=== PATIENT | female | born 1980 | race Caucasian/White ===

== ENCOUNTER 2017-01-08 15:36 | Emergency (ER) | payer OTHER ==
[~2017-01-08] VITALS: Wt 64.0 kg
[~2017-01-08 15:36] MED LIST: CLIN-73 PO; HYDR-3498 PO; IBUP-1542 PO; PRENAT PO; ZOF8 PO
[2017-01-08] MEDS ORDERED: HYDR-906 PO (16:24)
[2017-01-08] MEDS ORDERED: CYCL-319 PO (16:24)
[2017-01-08] MEDS ORDERED: IBUP-1542 PO (16:24)
[2017-01-08] MEDS ORDERED: IBUPROFEN 600 MG TAB PO ONE (16:30)
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
== END 2017-01-08 16:50 | disposition home or self-care (01) ==
LOC: FTE 15:36
DX: T74.91XA Unspecified adult maltreatment, confirmed, initial encounter (principal); T17.308A Unspecified foreign body in larynx causing other injury, initial encounter; W49.09XA Other specified item causing external constriction, initial encounter; Y92.9 Unspecified place or not applicable
CPT/HCPCS: Z7502; Z7610; 99284

== ENCOUNTER 2017-07-07 18:40 | Emergency (ER) | payer OTHER ==
[~2017-07-07] VITALS: Wt 66.5 kg
[~2017-07-07 18:40] MED LIST changes: +CYCL-319 PO; +HYDR-906 PO
[2017-07-07 18:45] VITALS: Wt 66.5 kg
[2017-07-07] MEDS ORDERED: HYDROCODONE/APAP (5/325) TAB PO ONE (20:30)
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
[2017-07-07 21:05] LABS: URINE BLOOD (Dip) POC Negative (NEGATIVE)
--- NOTE | 2017-07-07 21:25 | RADRPT ---
PROCEDURE: CT Abdomen and Pelvis without contrast CLINICAL INDICATION: Lower abdominal pain TECHNIQUE: Transaxial images were obtained through the abdomen and pelvis on a multi-slice scanner without the intravenous contrast administration. No oral contrast had previously been given. Sagit osiel and coronal re-formations were subsequently reconstructed. One or more of the following dose reduction techniques were used: - Automated exposure control. - Adjustment of the mA and/or kV according to patient size. - Use of iterative reconstruction technique. Radiation dose: CTDIvol = 8.13 mGy; DLP = 412.57 mGy-cm. COMPARISON: No prior studies are available for comparison. FINDINGS: Lung bases: The visualized lung bases appear unremarkable. Liver: The liver is mildly enlarged but no focal lesion is identified. Gallbladder: The gallbladder is somewhat contracted but no radiopaque stone is identified. Bile ducts: The intra and extrahepatic bile ducts are normal in caliber. Pancreas: Appears normal with no mass or inflammation evident. Spleen: Normal in size with no focal lesion. Adrenals: Normal with no mass identified. Kidneys, ureters and bladder: The kidneys are normal in size and there is no mass, pathological calc ification, or hydronephrosis evident. There is no perinephric stranding. The ureters are normal in c aliber and no ureteroliths are identified. The bladder appears unremarkable. Reproductive organs: The uterus is anteverted and midline. There is a 1.7 cm left adnexal cyst. Stomach and bowel: The stomach is moderately distended with food debris. Substantial stool is seen in the right colon. There is no evidence of bowel obstruction or inflammation. Appendix: A normal-appearing vermiform appendix is evident. Peritoneum: No free intraperitoneal fluid or air is identified. Aorta: Normal in caliber with no aneurysmal dilatation. IVC: Unremarkable. Lymph nodes: No pathologically enlarged nodes are identified. Osseous structures: The osseous elements appear intact. IMPRESSION: 1. The stomach is moderately distended with food debris and substantial stool is seen within the ri ght colon but there is no evidence of bowel obstruction or inflammation and a normal-appearing vermi form appendix is evident. 2. The kidneys appear normal without evidence of urinary outflow obstruction and there is no eviden ce of ureterolithiasis. The bladder appears unremarkable. 3. Hepatomegaly with no focal lesion. 4. 1.7 cm left adnexal cyst. 5. There is no free intraperitoneal fluid or air. Bogdan Quiroz Physician Date Time Electronically viewed and signed by Bogdan Quiroz Physician on 07/07/2017 21:25 RH/
[2017-07-07] MEDS ORDERED: NAPR-260 PO (21:40)
[2017-07-07] MEDS ORDERED: NITR-58 PO (21:40)
[2017-07-07] MEDS ORDERED: CLOT30CR24 TOP (21:41)
== END 2017-07-07 21:50 | disposition home or self-care (01) ==
LOC: FTE 18:40
DX: R10.2 Pelvic and perineal pain (principal); N39.0 Urinary tract infection, site not specified
CPT/HCPCS: 74176; 81003; Z7502; Z7610